=== PATIENT | male | born 1935 | race Asian ===

== ENCOUNTER 2018-02-03 17:57 | Inpatient (IN) | payer OTHER ==
--- NOTE | 2018-02-03 18:32 | PDOC ---
Rapid Medical Evaluation Chief Complaint: Blood Transfusion Time Seen by Provider: 02/03/18 18:31 Medical Evaluation: Allergies Allergy/AdvReac Type Severity Reaction Status Date / Time No Known Drug Allergies Allergy Verified 02/03/18 18:10 Vital Signs Temp Pulse Resp BP Pulse Ox 98.7 F 107 H 19 99/46 96 02/03/18 18:10 02/03/18 18:10 02/03/18 18:10 02/03/18 18:10 02/03/18 18:10 02/03/18 18:31 I have performed a brief in-person evaluation of this patient. The patient presents with a chief complaint of blood transfusion. Sent from PCP for low h& H. Reports weakness Pertinent physical exam finding are nad unlabored breathing I have ordered the following: labs ordered The patient will proceed to the ED for further evaluation. Discharge Disposition - Referrals Referrals: Eddie Alvarado MD [Primary Care Provider] - - Patient Instructions - Post Discharge Activity
[2018-02-03 19:00] LABS: BASO % 0.4 % (0-2.0); EOS % 2.9 % (0-4.5); HEMATOCRIT 23.2 % (35.4-49); LYMPH % 14.9 % (8-40); MCHC 34.6 g/dl (32.0-35.9); MEAN CELL VOLUME 92.5 fl (80-96); MEAN PLT VOLUME 8.2 fl (7.5-11.1); MONO % 10.8 % (3.8-10.2); PLATELET COUNT 197 K/MM3 (134-434); RDW 14.3 % (11.9-15.9); WHITE BLOOD COUNT 7.6 K/mm3 (4.0-10.0)
[2018-02-03 19:17] LABS: INR 1.09 (0.82-1.09); PROTHROMBIN TIME (PATIENT) 12.3 SEC (9.98-11.88)
[2018-02-03 19:19] LABS: ACTIVATED PTT 29.7 SECONDS (26.9-34.4)
[2018-02-03 19:21] LABS: ALBUMIN 3.1 g/dl (3.4-5.0); ALK PHOS 65 U/L (45-117); ANION GAP 5 (8-16); BILIRUBIN,TOTAL 0.2 mg/dL (0.2-1.0); BLOOD UREA NITROGEN 36 mg/dL (7-18); CALCIUM 8.4 mg/dL (8.5-10.1); CHLORIDE 103 mmol/L (98-107); CO2 29 mmol/L (21-32); CREATININE 1.5 mg/dL (0.7-1.3); GLUCOSE,RANDOM 141 mg/dL (74-106); POTASSIUM 4.1 mmol/L (3.5-5.1); SGOT/AST 16 U/L (15-37); SGPT/ALT 16 U/L (12-78); SODIUM 137 mmol/L (136-145); TOT PROT 6.6 g/dl (6.4-8.2)
--- NOTE | 2018-02-03 19:41 | PDOC ---
*Physical Exam - Vital Signs Last Vital Signs Temp Pulse Resp BP Pulse Ox 98.7 F 107 H 19 99/46 96 02/03/18 18:10 02/03/18 18:10 02/03/18 18:10 02/03/18 18:10 02/03/18 18:10 ED Treatment Course - LABORATORY CBC & Chemistry Diagram: 02/03/18 18:40 02/03/18 18:40 - ADDITIONAL ORDERS Additional order review: Laboratory Results 02/03/18 02/03/18 18:40 18:40 PT with INR 12.30 H INR 1.09 PTT (Actin FS) 29.7 Sodium 137 Potassium 4.1 Chloride 103 Carbon Dioxide 29 D Anion Gap 5 L BUN 36 H D Creatinine 1.5 H Creat Clearance w eGFR 44.69 Random Glucose 141 H D Calcium 8.4 L Total Bilirubin 0.2 D AST 16 ALT 16 Alkaline Phosphatase 65 D Total Protein 6.6 Albumin 3.1 L 02/03/18 18:40 RBC 2.50 L MCV 92.5 MCHC 34.6 RDW 14.3 MPV 8.2 Neutrophils % 71.0 Lymphocytes % 14.9 D Monocytes % 10.8 H D Eosinophils % 2.9 Basophils % 0.4 *DC/Admit/Observation/Transfer Diagnosis at time of Disposition: Anemia - Discharge Dispostion Condition at time of disposition: Stable Admit: Yes - Referrals Referrals: Eddie Alvarado MD [Primary Care Provider] - - Patient Instructions - Post Discharge Activity
--- NOTE | 2018-02-03 19:42 | PDOC ---
History of Present Illness - General History Source: Patient Exam Limitations: No Limitations - History of Present Illness Initial Comments: 02/03/18 20:06 The patient is an 82 year old male with a significant PMH of TURP (01/31/18), diabetes, HTN, hyperlipidemia, GERD who presents to the emergency department after being sent by Dr. Eddie Alvarado for evaluation of blood transfusion. The patient reports he has been transfused before. The patient denies weakness or numbness. He denies chest pain or shortness of breath. The patient denies any other complaints. Allergies: NKDA Past surgical history: Cardiac catheter placement. Cardiac stents x3. Appendectomy. Social history: Former smoker. No reported alcohol or drug use. PCP: Dr. Eddie Alvarado <Catalino Abdullahi - Last Filed: 02/03/18 22:30> - General History Source: Patient <Mao Bennett - Last Filed: 02/04/18 19:22> - General Chief Complaint: Blood Transfusion Stated Complaint: Blood Transfusion/ SENT BY PCP Time Seen by Provider: 02/03/18 18:31 Past History <Catalino Abdullahi - Last Filed: 02/03/18 22:30> - Past Medical History Anemia: No Asthma: No Cancer: No Cardiac Disorders: Yes (CARDIAC STENT TIMES THREE) CVA: No COPD: No CHF: No Dementia: No Diabetes: Yes GI Disorders: Yes (REFLUX, ULCER) Disorders: Yes (ENLARGED PROSTATE) HTN: Yes Hypercholesterolemia: Yes Liver Disease: No Seizures: No Thyroid Disease: No - Surgical History Abdominal Surgery: No Appendectomy: Yes Cardiac Surgery: (CARD CATH WITH STENT TIMES THREE) Cholecystectomy: No Lung Surgery: No Neurologic Surgery: No Orthopedic Surgery: No - Suicide/Smoking/Psychosocial Hx Smoking History: Never smoked Have you smoked in the past 12 months: No If you are a former smoker, when did you quit?: 1997 Hx Alcohol Use: No Drug/Substance Use Hx: No Substance Use Type: None Hx Substance Use Treatment: No <Mao Bennett - Last Filed: 02/04/18 19:22> - Past Medical History Allergies/Adverse Reactions: Allergies Allergy/AdvReac Type Severity Reaction Status Date / Time No Known Drug Allergies Allergy Verified 02/03/18 18:10 Home Medications: Ambulatory Orders Aspirin 81 mg PO DAILY 02/04/18 Clopidogrel Bisulfate [Plavix -] 75 mg PO DAILY 02/04/18 Ezetimibe-Simvastatin 10-20 mg 10 - 20 mg PO DAILY 02/04/18 Linagliptin [Tradjenta] 5 mg PO DAILY 02/04/18 Losartan Potassium 25 mg PO DAILY 02/04/18 Metoprolol Succinate 25 mg PO DAILY 02/04/18 Tamsulosin HCl [Flomax -] 0.4 mg PO DAILY 02/04/18 Review of Systems - Review of Systems Able to Perform ROS?: Yes Comments:: 02/03/18 20:06 CONSTITUTIONAL: Absent: fever, chills, diaphoresis, generalized weakness, malaise, loss of appetite HEENT: Absent: rhinorrhea, nasal congestion, throat pain, throat swelling, difficulty swallowing, mouth swelling, ear pain, eye pain, visual Changes CARDIOVASCULAR: Absent: chest pain, syncope, palpitations, irregular heart rate, lightheadedness , peripheral edema RESPIRATORY: Absent: cough, shortness of breath, dyspnea with exertion, orthopnea, wheezing, stridor, hemoptysis GASTROINTESTINAL: Absent: abdominal pain, abdominal distension, nausea, vomiting, diarrhea, constipation, melena, hematochezia GENITOURINARY: Absent: dysuria, frequency, urgency, hesitancy, hematuria, flank pain, genital pain MUSCULOSKELETAL: Absent: myalgia, arthralgia, joint swelling SKIN: Absent: rash, itching, pallor HEMATOLOGIC/IMMUNOLOGIC: Absent: easy bleeding, easy bruising, lymphadenopathy, frequent infections ENDOCRINE: Absent: unexplained weight gain, unexplained weight loss, heat intolerance, cold intolerance NEUROLOGIC: Absent: headache, focal weakness or paresthesias, dizziness, unsteady gait, seizure, mental status changes, bladder or bowel incontinence PSYCHIATRIC: Absent: anxiety, depression, suicidal or homicidal ideation, hallucinations. <Catalino Abdullahi - Last Filed: 02/03/18 22:30> *Physical Exam - Vital Signs Last Vital Signs Temp Pulse Resp BP Pulse Ox 98.7 F 107 H 19 99/46 96 02/03/18 18:10 02/03/18 18:10 02/03/18 18:10 02/03/18 18:10 02/03/18 18:10 - Physical Exam Comments: 02/03/18 20:06 GENERAL: Well developed, well nourished. Awake and alert. No acute distress. HEENT: Normocephalic, atraumatic. PERRLA, EOMI. No conjunctival pallor. Sclera are non- icteric. Moist mucous membranes. Oropharynx is clear. NECK: Supple. Full ROM. No JVD. Carotid pulses 2+ and symmetric, without bruits. No thyromegaly. No lymphadenopathy. CARDIOVASCULAR: (+) Slightly tachycardic. Regular rhythm. No murmurs, rubs, or gallops. Distal pulses are 2+ and symmetric. PULMONARY: No evidence of respiratory distress. Lungs clear to auscultation bilaterally. No wheezing, rales or rhonchi. ABDOMINAL: Soft. Non-tender. Non-distended. No rebound or guarding. No organomegaly. Normoactive bowel sounds. MUSCULOSKELETAL Normal range of motion at all joints. No bony deformities or tenderness. No CVA tenderness. EXTREMITIES: No cyanosis. No clubbing. No edema. No calf tenderness. SKIN: Warm and dry. Normal capillary refill. No rashes. No jaundice. NEUROLOGICAL: Alert, awake, appropriate. Cranial nerves 2-12 intact. No deficits to light touch and temperature in face, upper extremities and lower extremities. No motor deficits in the in face, upper extremities and lower extremities. Normoreflexic in the upper and lower extremities. Normal speech. Toes are downgoing bilaterally. PSYCHIATRIC: Cooperative. Good eye contact. Appropriate mood and affect. <Catalino Abdullahi - Last Filed: 02/03/18 22:30> - Vital Signs Last Vital Signs Temp Pulse Resp BP Pulse Ox 98.7 F 107 H 19 99/46 96 02/03/18 18:10 02/03/18 18:10 02/03/18 18:10 02/03/18 18:10 02/03/18 18:10 <Mao Bennett - Last Filed: 02/04/18 19:22> Heart Score/ECG Review #1 02/03/18 20:46 Vent rate 98 bpm Sinus rhythm with occasional consecutive premature ventricular complexes Left anterior fascicular block Abnormal ECG <Catalino Abdullahi - Last Filed: 02/03/18 22:30> ED Treatment Course - LABORATORY CBC & Chemistry Diagram: 02/03/18 18:40 02/03/18 18:40 - ADDITIONAL ORDERS Additional order review: Laboratory Results 02/03/18 02/03/18 02/03/18 18:40 18:40 18:40 PT with INR 12.30 H INR 1.09 PTT (Actin FS) 29.7 Sodium 137 Potassium 4.1 Chloride 103 Carbon Dioxide 29 D Anion Gap 5 L BUN 36 H D Creatinine 1.5 H Creat Clearance w eGFR 44.69 Random Glucose 141 H D Calcium 8.4 L Total Bilirubin 0.2 D AST 16 ALT 16 Alkaline Phosphatase 65 D Total Protein 6.6 Albumin 3.1 L Blood Type O POSITIVE Antibody Screen Negative 02/03/18 18:40 RBC 2.50 L MCV 92.5 MCHC 34.6 RDW 14.3 MPV 8.2 Neutrophils % 71.0 Lymphocytes % 14.9 D Monocytes % 10.8 H D Eosinophils % 2.9 Basophils % 0.4 <Catalino Abdullahi - Last Filed: 02/03/18 22:30> - LABORATORY CBC & Chemistry Diagram: 02/04/18 06:00 02/04/18 06:00 - ADDITIONAL ORDERS Additional order review: Laboratory Results 02/03/18 02/03/18 18:40 18:40 PT with INR 12.30 H INR 1.09 PTT (Actin FS) 29.7 Sodium 137 Potassium 4.1 Chloride 103 Carbon Dioxide 29 D Anion Gap 5 L BUN 36 H D Creatinine 1.5 H Creat Clearance w eGFR 44.69 Random Glucose 141 H D Calcium 8.4 L Total Bilirubin 0.2 D AST 16 ALT 16 Alkaline Phosphatase 65 D Total Protein 6.6 Albumin 3.1 L 02/03/18 18:40 RBC 2.50 L MCV 92.5 MCHC 34.6 RDW 14.3 MPV 8.2 Neutrophils % 71.0 Lymphocytes % 14.9 D Monocytes % 10.8 H D Eosinophils % 2.9 Basophils % 0.4 <Mao Bennett - Last Filed: 02/04/18 19:22> Medical Decision Making - Medical Decision Making 02/03/18 22:[address] Spangler at 19:45 <Catalino Abdullahi - Last Filed: 02/03/18 22:30> - Medical Decision Making 02/04/18 19:21 Dr. Bennett: The scribe's documentation has been prepared under my direction and personally reviewed by me in its entirery. I confirm that the note above accurately reflects all work, treatment, procedures, and medical decision making performed by me. Patient admit for blood transfusion <Mao Bennett - Last Filed: 02/04/18 19:22> *DC/Admit/Observation/Transfer - Attestations Scribe Attestion: 02/03/18 20:07 Documentation prepared by Catalino Abdullahi, acting as medical sonographer for Mao Bennett DO. <Catalino Abdullahi - Last Filed: 02/03/18 22:30> - Discharge Dispostion Decision to Admit order Date/Time: Decision to Admit Order Category Date Time Status Decision to Admit to Hospital Routine Admission 02/03/18 19:41 Ordered <Mao Bennett - Last Filed: 02/04/18 19:22> Diagnosis at time of Disposition: Anemia - Discharge Dispostion Disposition: HOME Condition at time of disposition: Stable
[2018-02-03 21:34] VITALS: TEMP 98
--- NOTE | 2018-02-03 21:47 | HP ---
Admitting History and Physical - Past Medical History Cardiovascular: Yes: CAD (S/P STENTS 2007 PATENT BY CATH 2012), HTN, Hyperlipdemia Gastrointestinal: Yes: GI Bleed, Peptic Ulcer Disease Renal/: Yes: BPH - Past Surgical History Past Surgical History: Yes: Stent - Smoking History Smoking history: Never smoked Have you smoked in the past 12 months: No If you are a former smoker, when did you quit?: 1997 - Alcohol/Substance Use Hx Alcohol Use: No - Social History ADL: Independent History of Recent Travel: No Home Medications - Allergies Allergies/Adverse Reactions: Allergies Allergy/AdvReac Type Severity Reaction Status Date / Time No Known Drug Allergies Allergy Verified 02/03/18 18:10 - Home Medications Home Medications: Ambulatory Orders NK [No Known Home Medication] 02/03/18 Physical Examination Vital Signs: Vital Signs Temperature 98 F 02/03/18 21:33 Pulse Rate 83 02/03/18 21:33 Respiratory Rate 14 02/03/18 21:33 Blood Pressure 140/60 02/03/18 21:33 O2 Sat by Pulse Oximetry (%) 97 02/03/18 21:33 Labs: CBC, BMP 02/03/18 18:40 02/03/18 18:40
[2018-02-04 01:50] VITALS: BMI 24.7
[2018-02-04 07:52] LABS: BASO % 0.7 % (0-2.0); EOS % 3.6 % (0-4.5); HEMATOCRIT 23.5 % (35.4-49); HEMOGLOBIN 8.1 GM/dL (11.7-16.9); LYMPH % 14.4 % (8-40); MCH 31.3 pg (25.7-33.7); MCHC 34.3 g/dl (32.0-35.9); MEAN CELL VOLUME 91.2 fl (80-96); MEAN PLT VOLUME 8.3 fl (7.5-11.1); MONO % 9.8 % (3.8-10.2); NEUT % 71.5 % (42.8-82.8); PLATELET COUNT 179 K/MM3 (134-434); RBC 2.58 M/mm3 (4.00-5.60); RDW 14.5 % (11.9-15.9); WHITE BLOOD COUNT 7.7 K/mm3 (4.0-10.0)
[2018-02-04 08:28] LABS: ALBUMIN 2.8 g/dl (3.4-5.0); ANION GAP 10 (8-16); BILIRUBIN,TOTAL 0.9 mg/dL (0.2-1.0); BLOOD UREA NITROGEN 42 mg/dL (7-18); CALCIUM 8.2 mg/dL (8.5-10.1); CHLORIDE 102 mmol/L (98-107); CO2 28 mmol/L (21-32); CREATININE 1.1 mg/dL (0.7-1.3); GLUCOSE,RANDOM 134 mg/dL (74-106); POTASSIUM 4.1 mmol/L (3.5-5.1); SGOT/AST 17 U/L (15-37); SGPT/ALT 15 U/L (12-78); SODIUM 140 mmol/L (136-145)
[2018-02-04 08:30] LABS: ALK PHOS 48 U/L (45-117); TOT PROT 5.8 g/dl (6.4-8.2)
[2018-02-04] MEDS ORDERED: DOCUSATE SODIUM 100 MG CAPSULE (FP) PO ONE (13:00)
--- NOTE | 2018-02-04 13:18 | EKG ---
Test Reason : Blood Pressure : / mmHG Vent. Rate : 098 BPM Atrial Rate : 098 BPM P-R Int : 198 ms QRS Dur : 078 ms QT Int : 344 ms P-R-T Axes : 092 -47 069 degrees QTc Int : 439 ms SINUS RHYTHM WITH OCCASIONAL and consecutive PREMATURE VENTRICULAR COMPLEXES LEFT ANTERIOR FASCICULAR BLOCK ABNORMAL ECG WHEN COMPARED WITH ECG OF 22-JUL-2016 07:41, PREMATURE VENTRICULAR COMPLEXES ARE NOW PRESENT Confirmed by WILFRED GUTIERREZ, LEANNE ([id number]) on 02/04/2018 1:18:24 PM Referred By: Confirmed By:LEANNE HARDIN MD
[2018-02-04 13:49] VITALS: BP 130/58; PULSE 81
--- NOTE | 2018-02-05 16:21 | EKG ---
Test Reason : Blood Pressure : / mmHG Vent. Rate : 091 BPM Atrial Rate : 091 BPM P-R Int : 208 ms QRS Dur : 080 ms QT Int : 336 ms P-R-T Axes : 075 -27 061 degrees QTc Int : 413 ms NORMAL SINUS RHYTHM NORMAL ECG WHEN COMPARED WITH ECG OF 22-JUL-2016 07:41, NO SIGNIFICANT CHANGE WAS FOUND Confirmed by LONNIE WATSON MD ([id number]) on 02/05/2018 4:21:37 PM Referred By: Confirmed By:LONNIE WATSON MD
== END 2018-02-04 15:00 | disposition home or self-care (01) | DRG 812 ==
LOC: JER 17:57 → JERBED 19:55 → J7W 21:28
PROVIDERS: ADMIT Internal Medicine; ATTEND Internal Medicine
PROC: 30233N1 Transfusion of Nonautologous Red Blood Cells into Peripheral Vein, Percutaneous Approach (ICD-10-PCS; principal; 2018-02-03)
DX: D64.9 Anemia, unspecified (principal); E11.9 Type 2 diabetes mellitus without complications; I10 Essential (primary) hypertension; E78.5 Hyperlipidemia, unspecified; K21.9 Gastro-esophageal reflux disease without esophagitis; Z87.891 Personal history of nicotine dependence; I25.10 Atherosclerotic heart disease of native coronary artery without angina pectoris; K27.9 Peptic ulcer, site unspecified, unspecified as acute or chronic, without hemorrhage or perforation; I44.4 Left anterior fascicular block; N40.0 Benign prostatic hyperplasia without lower urinary tract symptoms
CPT/HCPCS: 36415; 36430; 71045-TC-FY; 80053; 82962; 85025; 85610; 85730; 86922; 93005; 93010; 99285-25

== ENCOUNTER 2018-02-07 15:23 | Inpatient (IN) | payer OTHER ==
[2018-02-07 15:39] VITALS: BMI 24.3
--- NOTE | 2018-02-07 17:00 | PDOC ---
History of Present Illness - General Chief Complaint: Blood Transfusion Stated Complaint: PCP SENT/BLOOD TRANSFUSION Time Seen by Provider: 02/07/18 16:20 History Source: Patient - History of Present Illness Timing/Duration: other Associated Symptoms: reports: weakness. denies: chest pain, cough, fever/chills , nausea/vomiting, shortness of breath Past History - Past Medical History Allergies/Adverse Reactions: Allergies Allergy/AdvReac Type Severity Reaction Status Date / Time No Known Drug Allergies Allergy Verified 02/07/18 15:35 Home Medications: Ambulatory Orders Aspirin 81 mg PO DAILY 02/04/18 Clopidogrel Bisulfate [Plavix -] 75 mg PO DAILY 02/04/18 Metoprolol Succinate 25 mg PO DAILY 02/04/18 Anemia: No Asthma: No Cancer: No Cardiac Disorders: Yes (CARDIAC STENT TIMES THREE) CVA: No COPD: No CHF: No Dementia: No Diabetes: Yes GI Disorders: Yes (REFLUX, ULCER) Disorders: Yes (ENLARGED PROSTATE) HTN: Yes Hypercholesterolemia: Yes Liver Disease: No Seizures: No Thyroid Disease: No - Surgical History Abdominal Surgery: No Appendectomy: Yes Cardiac Surgery: (CARD CATH WITH STENT TIMES THREE) Cholecystectomy: No Lung Surgery: No Neurologic Surgery: No Orthopedic Surgery: No - Suicide/Smoking/Psychosocial Hx Smoking History: Former smoker Have you smoked in the past 12 months: No If you are a former smoker, when did you quit?: 1997 Information on smoking cessation initiated: No Hx Alcohol Use: No Drug/Substance Use Hx: No Substance Use Type: None Hx Substance Use Treatment: No Review of Systems - Review of Systems Constitutional: Yes: Weakness. No: Chills, Fever Respiratory: No: Shortness of Breath Cardiac (ROS): No: Chest Pain ABD/GI: No: Constipated, Diarrhea, Nausea, Vomiting, Abdominal cramping : No: Dysuria *Physical Exam - Vital Signs Last Vital Signs Temp Pulse Resp BP Pulse Ox 98.9 F 88 19 99/51 96 02/07/18 15:35 02/07/18 15:35 02/07/18 15:35 02/07/18 15:35 02/07/18 15:35 - Physical Exam General Appearance: Yes: Appropriately Dressed. No: Apparent Distress HEENT: positive: Normal Voice Neck: positive: Supple Respiratory/Chest: positive: Lungs Clear, Normal Breath Sounds. negative: Respiratory Distress Cardiovascular: positive: Regular Rate, S1, S2 Gastrointestinal/Abdominal: positive: Soft. negative: Tender Rectal Exam: positive: other (dark brown guaiac + stool) Musculoskeletal: negative: CVA Tenderness Integumentary: positive: Dry, Warm Neurologic: positive: Fully Oriented, Alert, Normal Mood/Affect ED Treatment Course - LABORATORY CBC & Chemistry Diagram: 02/07/18 16:54 02/07/18 16:54 - RADIOLOGY Radiology Studies Ordered: Category Date Time Status CHEST X-RAY PORTABLE* [RAD] Stat Radiology 02/07/18 16:21 Ordered Medical Decision Making - Medical Decision Making 02/07/18 16:59 82-year-old male history of TURP 01/31/2018, indwelling catheter, diabetes, hypertension, hyperlipidemia, GERD, peptic ulcer disease, GI bleed, anemia, status post multiple transfusions including transfusion several days ago for hemoglobin of 8, received 1 unit per son, s/p f/u with Dr Alvarado yesterday who repeated blood work and contacted pt today to inform him that his hemoglobin came back at 6. Patient continues to feel weak. Denies dizziness or shortness of breath. As per son since TURP last month, patient has had dark stool. Currently on iron pills. Patient denies any abdominal pain, diarrhea, constipation, nausea, vomiting, fever or chills See exam Possible melena w/ symptomatic anemia H/o PUD, gastritis, s/p multiple transfusion +weakness now w/ hgb 6 on labs yesterday per son Hypotensive in ED w/ benign abd and guaiac + dark stool -IVF -PPI -labs -transfuse -admit 02/07/18 18:00 HGB 7.1 today. Will transfers transfuse 2 units of packed red blood cells per discussion with Dr. Nugent. Patient admitted to Dr. Spangler as per discussion with [facility] Consult to patient's GI, Dr. Alford, placed in [facility] 02/07/18 18:04 *DC/Admit/Observation/Transfer Diagnosis at time of Disposition: GIB (gastrointestinal bleeding) Qualifiers: GI bleed type/associated pathology: unspecified gastrointestinal hemorrhage type Qualified Code(s): K92.2 - Gastrointestinal hemorrhage, unspecified Anemia Qualifiers: Anemia type: unspecified type Qualified Code(s): D64.9 - Anemia, unspecified - Discharge Dispostion Condition at time of disposition: Fair Admit: Yes - Referrals Referrals: Eddie Alvarado MD [Primary Care Provider] - - Patient Instructions - Post Discharge Activity
[2018-02-07 17:06] LABS: BASO % 0.9 % (0-2.0); EOS % 3.2 % (0-4.5); HEMATOCRIT 20.9 % (35.4-49); HEMOGLOBIN 7.1 GM/dL (11.7-16.9); LYMPH % 19.4 % (8-40); MCH 31.7 pg (25.7-33.7); MCHC 33.8 g/dl (32.0-35.9); MEAN CELL VOLUME 93.9 fl (80-96); MEAN PLT VOLUME 7.7 fl (7.5-11.1); MONO % 13.1 % (3.8-10.2); NEUT % 63.4 % (42.8-82.8); PLATELET COUNT 213 K/MM3 (134-434); RBC 2.23 M/mm3 (4.00-5.60); RDW 15.3 % (11.9-15.9); WHITE BLOOD COUNT 5.8 K/mm3 (4.0-10.0)
[2018-02-07 17:17] LABS: INR 1.12 (0.82-1.09); PROTHROMBIN TIME (PATIENT) 12.7 SEC (9.98-11.88)
[2018-02-07 17:18] LABS: URINE APPEARANCE SLCLOUDY; URINE BILIRUBIN NEGATIVE (<2.0 mg/dL); URINE COLOR YELLOW; URINE GLUCOSE (UA) NEGATIVE (NEGATIVE); URINE KETONE NEGATIVE (NEGATIVE); URINE NITRITE NEGATIVE (NEGATIVE); URINE UROBILINOGEN NEGATIVE mg/dL (0.2-1.0)
[2018-02-07 17:28] LABS: URINE LEUK ESTERASE 3+ (NEGATIVE); URINE PROTEIN 1+ (NEGATIVE)
[2018-02-07 17:29] LABS: URINE MUCUS RARE
[2018-02-07 17:34] LABS: ALBUMIN 3.1 g/dl (3.4-5.0); ANION GAP 7 (8-16); BLOOD UREA NITROGEN 39 mg/dL (7-18); CALCIUM 7.9 mg/dL (8.5-10.1); CHLORIDE 106 mmol/L (98-107); CO2 28 mmol/L (21-32); CREATININE 1.4 mg/dL (0.7-1.3); GLUCOSE,RANDOM 126 mg/dL (74-106); POTASSIUM 4.5 mmol/L (3.5-5.1); SGOT/AST 18 U/L (15-37); SGPT/ALT 23 U/L (12-78); SODIUM 141 mmol/L (136-145)
[2018-02-07 17:37] LABS: ALK PHOS 62 U/L (45-117); BILIRUBIN,TOTAL 0.3 mg/dL (0.2-1.0); TOT PROT 6.4 g/dl (6.4-8.2)
[2018-02-07] MEDS ORDERED: SODIUM CHLORIDE 500 ML IV STA (17:43)
[2018-02-07] MEDS ORDERED: PANTOPRAZOLE SODIUM 40 MG VIAL IVPUSH ONE (17:46)
[2018-02-07] MEDS ORDERED: PANTOPRAZOLE SODIUM 40 MG VIAL ONE (17:51)
[2018-02-07] MEDS: PANTOPRAZOLE SODIUM 80 MG in SODIUM CHLORIDE 100 ML IVPB SCH (18:15)
[2018-02-07] MEDS ORDERED: PT OWN MED DRAWER 7, Y5N ONE (23:50)
[2018-02-08] MEDS ORDERED: DEXTROSE 5%-0.45% SALINE 1,000 ML IV SCH (02:00)
[2018-02-08] MEDS: PANTOPRAZOLE SODIUM 80 MG in SODIUM CHLORIDE 100 ML IVPB SCH (06:26)
[2018-02-08 07:20] LABS: EOS % 6.5 % (0-4.5); HEMATOCRIT 23.2 % (35.4-49); LYMPH % 19.8 % (8-40); MCH 31.4 pg (25.7-33.7); MCHC 34.2 g/dl (32.0-35.9); MEAN CELL VOLUME 91.7 fl (80-96); MEAN PLT VOLUME 7.7 fl (7.5-11.1); MONO % 11.4 % (3.8-10.2); NEUT % 61.3 % (42.8-82.8); PLATELET COUNT 187 K/MM3 (134-434); RBC 2.53 M/mm3 (4.00-5.60); RDW 15.4 % (11.9-15.9)
[2018-02-08 07:54] LABS: ALBUMIN 2.7 g/dl (3.4-5.0); ALK PHOS 45 U/L (45-117); ANION GAP 9 (8-16); BILIRUBIN,TOTAL 0.8 mg/dL (0.2-1.0); BLOOD UREA NITROGEN 25 mg/dL (7-18); CALCIUM 7.9 mg/dL (8.5-10.1); CHLORIDE 108 mmol/L (98-107); CO2 27 mmol/L (21-32); CREATININE 1.3 mg/dL (0.7-1.3); GLUCOSE,RANDOM 118 mg/dL (74-106); POTASSIUM 3.9 mmol/L (3.5-5.1); SGOT/AST 14 U/L (15-37); SGPT/ALT 14 U/L (12-78); SODIUM 144 mmol/L (136-145); TOT PROT 5.6 g/dl (6.4-8.2)
--- NOTE | 2018-02-08 09:01 | EKG ---
Test Reason : Blood Pressure : / mmHG Vent. Rate : 074 BPM Atrial Rate : 074 BPM P-R Int : 198 ms QRS Dur : 080 ms QT Int : 390 ms P-R-T Axes : 090 -38 053 degrees QTc Int : 432 ms NORMAL SINUS RHYTHM LEFT AXIS DEVIATION ABNORMAL ECG WHEN COMPARED WITH ECG OF 03-FEB-2018 20:32, PREMATURE VENTRICULAR COMPLEXES ARE NO LONGER PRESENT Confirmed by WILFRED GUTIERREZ, LEANNE ([id number]) on 02/08/2018 9:01:09 AM Referred By: Confirmed By:LEANNE HARDIN MD
[2018-02-08] MEDS: PANTOPRAZOLE 40 MG TABLET (FP) PO SCH (10:23)
[2018-02-08] MEDS: metoPROLOL SUCCINATE 25 MG TAB.SR.24H (FP) PO SCH (10:23)
--- NOTE | 2018-02-08 10:34 | CON.GU ---
Consult Consult Specialty:: Urology Reason for Consultation:: Urinary retention and hematuria - History of Present Illness Chief Complaint: Unable to urinate after TURP. Has been having hematuria also. - Past Medical History Cardio/Vascular: Yes: CAD (S/P STENTS 2007 PATENT BY CATH 2012), HTN, Hyperlipdemia Gastrointestinal: Yes: GI Bleed, Peptic Ulcer Disease Renal/: Yes: BPH - Past Surgical History Past Surgical History: Yes: Stent - Alcohol/Substance Use Hx Alcohol Use: No - Smoking History Smoking history: Former smoker Have you smoked in the past 12 months: No If you are a former smoker, when did you quit?: 1997 - Social History Usual Living Arrangement: With Spouse ADL: Independent History of Recent Travel: No Home Medications - Allergies Allergies/Adverse Reactions: Allergies Allergy/AdvReac Type Severity Reaction Status Date / Time No Known Drug Allergies Allergy Verified 02/07/18 15:35 - Home Medications Home Medications: Ambulatory Orders Aspirin 81 mg PO DAILY 02/04/18 Clopidogrel Bisulfate [Plavix -] 75 mg PO DAILY 02/04/18 Metoprolol Succinate 25 mg PO DAILY 02/04/18 Physical Exam- Vital Signs: Vital Signs Temperature 98.9 F 02/08/18 07:42 Pulse Rate 67 02/08/18 07:42 Respiratory Rate 18 02/08/18 07:42 Blood Pressure 123/50 02/08/18 07:42 O2 Sat by Pulse Oximetry (%) 98 02/08/18 00:28 Labs: CBC, BMP 02/08/18 07:05 02/08/18 07:05 Assessment/Plan BPH. Post TURP. Urinary retention and hematuria. Bleeding has stopped at present. Pt. is getting blood transfusion, received 2 units. Urologically pt. can be discharged and we will follow in the office. Thank you
--- NOTE | 2018-02-08 11:59 | CON.GI ---
Consult Consult Specialty:: GI Referred by:: Dr Spangler - History of Present Illness History of Present Illness: 82 y/o male with PMH of duodenal ulcers was admitted because of symptomatic anemia. He under went TURP 2 weeks ago. He denies abdominal pain, nausea and vomiting. He has microscopic hematuria. - Past Medical History Cardio/Vascular: Yes: CAD (S/P STENTS 2007 PATENT BY CATH 2012), HTN, Hyperlipdemia Gastrointestinal: Yes: GI Bleed, Peptic Ulcer Disease Renal/: Yes: BPH - Past Surgical History Past Surgical History: Yes: Stent - Alcohol/Substance Use Hx Alcohol Use: No - Smoking History Smoking history: Former smoker Have you smoked in the past 12 months: No If you are a former smoker, when did you quit?: 1997 - Social History Usual Living Arrangement: With Spouse ADL: Independent History of Recent Travel: No Home Medications - Allergies Allergies/Adverse Reactions: Allergies Allergy/AdvReac Type Severity Reaction Status Date / Time No Known Drug Allergies Allergy Verified 02/07/18 15:35 - Home Medications Home Medications: Ambulatory Orders Aspirin 81 mg PO DAILY 02/04/18 Clopidogrel Bisulfate [Plavix -] 75 mg PO DAILY 02/04/18 Metoprolol Succinate 25 mg PO DAILY 02/04/18 Physical Exam-GI Vital Signs: Vital Signs Temperature 98.9 F 02/08/18 07:42 Pulse Rate 67 02/08/18 07:42 Respiratory Rate 18 02/08/18 07:42 Blood Pressure 123/50 02/08/18 07:42 O2 Sat by Pulse Oximetry (%) 98 02/08/18 00:28 Constitutional: Yes: Well Nourished Eyes: Yes: Conjunctiva Clear HENT: Yes: Atraumatic Neck: Yes: Supple Cardiovascular: Yes: Regular Rate and Rhythm Respiratory: Yes: CTA Bilaterally ...Palpate: Yes: Soft. No: Firm/Rigid, Guarding, Hepatomegaly, Mass, Pulsatile Mass, Splenomegaly, Tenderness, Tenderness, Epigastium Labs: CBC, BMP 02/08/18 07:05 02/08/18 07:05 INR, PTT INR 1.12 (0.82-1.09) 02/07/18 16:54 Problem List - Problems (1) Anemia Assessment/Plan: most likely after TURP R> stool guaiac od x3 made aware to follow please recall as necessary Protonix 40mg daily Code(s): D64.9 - ANEMIA, UNSPECIFIED Qualifiers: Anemia type: unspecified type Qualified Code(s): D64.9 - Anemia, unspecified
--- NOTE | 2018-02-08 12:02 | HP ---
Admitting History and Physical - Admission History of Present Illness: Pt is a 82 y/o male w/ PMH significant for HTN, HLD, CAD(s//p cardiac stetns), duodenal ulcer, anemia and BPH(had TURP about 2 weeks ago). Pt has been having intermittent dark stools for a few weeks but states that he has a h/o anemia requiring blood transfusions in the past. Pt was recently trasnfused 1 unit of PBRC's and returns now bc of increased weakness and in the ER was found to have a hgb of 7.1 and ordered for 1 unit of PRBC's. Pt denies any chest pain/ palpitations/abdominal pain/nausea/vomiting. - Past Medical History Cardiovascular: Yes: CAD (S/P STENTS 2007 PATENT BY CATH 2012), HTN, Hyperlipdemia Gastrointestinal: Yes: GI Bleed, Peptic Ulcer Disease Renal/: Yes: BPH - Past Surgical History Past Surgical History: Yes: Stent - Smoking History Smoking history: Former smoker Have you smoked in the past 12 months: No If you are a former smoker, when did you quit?: 1997 - Alcohol/Substance Use Hx Alcohol Use: No - Social History ADL: Independent History of Recent Travel: No Home Medications - Allergies Allergies/Adverse Reactions: Allergies Allergy/AdvReac Type Severity Reaction Status Date / Time No Known Drug Allergies Allergy Verified 02/07/18 15:35 - Home Medications Home Medications: Ambulatory Orders Aspirin 81 mg PO DAILY 02/04/18 Clopidogrel Bisulfate [Plavix -] 75 mg PO DAILY 02/04/18 Metoprolol Succinate 25 mg PO DAILY 02/04/18 Family Disease History - Family Disease History Family History: Unremarkable Review of Systems - Review of Systems Constitutional: reports: Weakness HENT: reports: No Symptoms Neck: reports: No Symptoms Cardiovascular: reports: No Symptoms Respiratory: reports: No Symptoms Gastrointestinal: reports: Other (Dark stools) Musculoskeletal: reports: No Symptoms Physical Examination Vital Signs: Vital Signs Temperature 98.6 F 02/08/18 10:00 Pulse Rate 72 02/08/18 10:00 Respiratory Rate 18 02/08/18 10:00 Blood Pressure 130/56 02/08/18 10:00 O2 Sat by Pulse Oximetry (%) 98 02/08/18 09:00 Constitutional: Yes: Well Nourished HENT: Yes: WNL Neck: Yes: WNL, Supple Cardiovascular: Yes: WNL, Regular Rate and Rhythm Respiratory: Yes: WNL, Regular, CTA Bilaterally Gastrointestinal: Yes: WNL, Normal Bowel Sounds, Soft Musculoskeletal: Yes: WNL Extremities: Yes: WNL Edema: No Neurological: Yes: WNL, Alert, Oriented ...Motor Strength: WNL Labs: CBC, BMP 02/08/18 07:05 02/08/18 07:05 Problem List - Problems (1) GIB (gastrointestinal bleeding) Assessment/Plan: Monitor H?H Transfuse as need Stool hemoccult GI/heme consults Protonix Advance diet Code(s): K92.2 - GASTROINTESTINAL HEMORRHAGE, UNSPECIFIED Qualifiers: GI bleed type/associated pathology: unspecified gastrointestinal hemorrhage type Qualified Code(s): K92.2 - Gastrointestinal hemorrhage, unspecified (2) Anemia Assessment/Plan: Anemia w/u in progress ?Multifactorial Code(s): D64.9 - ANEMIA, UNSPECIFIED Qualifiers: Anemia type: unspecified type Qualified Code(s): D64.9 - Anemia, unspecified (3) Duodenal ulcer Code(s): K26.9 - DUODENAL ULCER, UNSP ACUTE OR CHRONIC, W/O HEMOR OR PERF (4) HLD (hyperlipidemia) Code(s): E78.5 - HYPERLIPIDEMIA, UNSPECIFIED (5) HTN (hypertension) Assessment/Plan: BP stable Pt not on any antihypertensives Will get cardio consult Code(s): I10 - ESSENTIAL (PRIMARY) HYPERTENSION (6) BPH (benign prostatic hyperplasia) Assessment/Plan: As per uro Code(s): N40.0 - BENIGN PROSTATIC HYPERPLASIA WITHOUT LOWER URINRY TRACT SYMP (7) CAD (coronary artery disease) Code(s): I25.10 - ATHSCL HEART DISEASE OF [place] CORONARY ARTERY W/O ANG PCTRS
--- NOTE | 2018-02-08 14:19 | CONSULT ---
Consult Consult Specialty:: Hematology Referred by:: Medicine Reason for Consultation:: Anemia - History of Present Illness Chief Complaint: Patient with recent TURP, with post-procedure hematuria, admitted for significant anemia. History of Present Illness: Reports being anemic since childhood, but unaware of any diagnosis. Hematuria as noted, but present for only a few days, and not danyelle. Of note, reports recent 'stick dark' stools, and noted to have occult blood assay positive. Otherwise feeling well. - History Source History Provided By: Patient Limitations to Obtaining History: No Limitations - Past Medical History Cardio/Vascular: Yes: CAD (S/P STENTS 2007 PATENT BY CATH 2012), HTN, Hyperlipdemia Gastrointestinal: Yes: GI Bleed, Peptic Ulcer Disease Renal/: Yes: BPH - Past Surgical History Past Surgical History: Yes: Stent - Alcohol/Substance Use Hx Alcohol Use: No - Smoking History Smoking history: Former smoker Have you smoked in the past 12 months: No If you are a former smoker, when did you quit?: 1997 - Social History Usual Living Arrangement: With Spouse ADL: Independent History of Recent Travel: No Home Medications - Allergies Allergies/Adverse Reactions: Allergies Allergy/AdvReac Type Severity Reaction Status Date / Time No Known Drug Allergies Allergy Verified 02/07/18 15:35 - Home Medications Home Medications: Ambulatory Orders Aspirin 81 mg PO DAILY 02/04/18 Clopidogrel Bisulfate [Plavix -] 75 mg PO DAILY 02/04/18 Metoprolol Succinate 25 mg PO DAILY 02/04/18 Review of Systems - Review of Systems Constitutional: reports: Malaise (Since surgery) Eyes: reports: No Symptoms HENT: reports: No Symptoms Neck: reports: No Symptoms Cardiovascular: denies: Chest Pain, Shortness of Breath Respiratory: denies: Cough, Hemoptysis, SOB Gastrointestinal: reports: Melena. denies: Abdominal Pain, Diarrhea, Vomiting Genitourinary: reports: Other (As per main complaint) Musculoskeletal: reports: No Symptoms Integumentary: reports: No Symptoms Neurological: denies: Dizziness, Headache, Weakness Endocrine: reports: No Symptoms Hematology/Lymphatic: denies: Easily Bruised, Excessive Bleeding Psychiatric: reports: No Symptoms Physical Exam Vital Signs: Vital Signs Temperature 98.6 F 02/08/18 10:00 Pulse Rate 72 02/08/18 10:00 Respiratory Rate 18 02/08/18 10:00 Blood Pressure 130/56 02/08/18 10:00 O2 Sat by Pulse Oximetry (%) 98 02/08/18 09:00 Constitutional: Yes: Well Nourished Eyes: Yes: Conjunctiva Clear, Other (arcus senilis) HENT: Yes: WNL Neck: Yes: WNL Cardiovascular: Yes: Regular Rate and Rhythm, S1, S2. No: Gallop, Murmur Respiratory: Yes: Regular, CTA Bilaterally Gastrointestinal: Yes: Normal Bowel Sounds, Soft. No: Hepatomegaly, Splenomegaly, Tenderness, Tenderness, Epigastrium Musculoskeletal: Yes: WNL Extremities: Yes: WNL Neurological: Yes: Alert, Oriented ...Motor Strength: WNL Psychiatric: Yes: Alert Labs: CBC, BMP 02/08/18 07:05 02/08/18 07:05 Assessment/Plan Normocytic anemia, following TURP procedure, with hematuria (likely not sufficient to explain degree of anemia), but suggestion of melena stools. GI consulted, PPI initated. Of interest, noted to have Hb of 7.7 in 2016. No other CBCs available for review between then and now. Normocytosis suggests acuity, or alternatively competing etiologies for anemia. Comprehensive hematinic screen ordered. Screen for hemolysis, but with low index of suspicion. Reticulocyte pending - if appropriately elevated then would be more confident in attributing current anemia solely to GI bleed Transfusion RBCs.
[2018-02-09 06:57] LABS: BASO % 0.7 % (0-2.0); HEMATOCRIT 27.5 % (35.4-49); HEMOGLOBIN 9.4 GM/dL (11.7-16.9); MCHC 34.2 g/dl (32.0-35.9); MEAN CELL VOLUME 90.5 fl (80-96); MEAN PLT VOLUME 7.6 fl (7.5-11.1); NEUT % 59.3 % (42.8-82.8); PLATELET COUNT 215 K/MM3 (134-434); RBC 3.04 M/mm3 (4.00-5.60); RDW 15.4 % (11.9-15.9); WHITE BLOOD COUNT 6.4 K/mm3 (4.0-10.0)
[2018-02-09 07:26] LABS: ALBUMIN 2.8 g/dl (3.4-5.0); ANION GAP 8 (8-16); BLOOD UREA NITROGEN 18 mg/dL (7-18); CALCIUM 8.2 mg/dL (8.5-10.1); CHLORIDE 108 mmol/L (98-107); CO2 27 mmol/L (21-32); GLUCOSE,RANDOM 103 mg/dL (74-106); POTASSIUM 3.9 mmol/L (3.5-5.1); SODIUM 143 mmol/L (136-145)
[2018-02-09 07:28] LABS: ALK PHOS 50 U/L (45-117); BILIRUBIN,TOTAL 0.8 mg/dL (0.2-1.0); CREATININE 1.3 mg/dL (0.7-1.3); SGOT/AST 19 U/L (15-37); SGPT/ALT 13 U/L (12-78)
--- NOTE | 2018-02-09 08:18 | CON.CARD ---
Cardiology Consult (text) - Consultation Consultation Note: Cardiology Consult Dictated IMP: Marked anemia Guaiac + stool Hx PUD Recent TURP CAD s/p PCI LAD/RCA 2007 REC: Further reccs as per GI and OK to hold ASA temporarily until source of bleeding is identified and stabilizes.
--- NOTE | 2018-02-09 08:48 | CONS ---
DATE OF CONSULTATION: 02/09/2018 REQUESTED BY: Nancy Spangler MD REASON FOR CONSULTATION: History of coronary disease, GI bleed and assistance with management of antiplatelet drugs. The patient is an 82-year-old male with a pertinent past medical history of coronary artery disease, status post PCI of the RCA and LAD in 2007, GI bleed in 2016 secondary to a gastric ulcer maintained on Plavix therapy alone, recent TURP 2 weeks ago, now presents admitted by his primary medical doctor for marked anemia of 7.1. He also has generalized fatigue over the last several weeks. He was found to be guaiac positive on admission. He denies chest pain. He does have exertional fatigue but denies palpitations, syncope, PND, orthopnea, or other symptoms of heart failure. PAST MEDICAL HISTORY: As above and also includes hypertension. ALLERGIES: He has no known drug allergies. HOME MEDICATIONS: Include Toprol 25 mg daily, Plavix 75 mg daily, and aspirin 81 mg daily. FAMILY HISTORY: Noncontributory. SOCIAL HISTORY: He is a former smoker. PHYSICAL EXAMINATION: Vital Signs: Temperature 97.7, blood pressure 136/55, O2 saturation 98 on room air. Neck: No bruits. Heart: S1, S2 regular. No murmurs. Chest: Clear. Abdomen: Soft, nontender. Extremities: No edema. Chest x-ray: Prominent mediastinum but no acute pathology. EKG: Normal sinus rhythm at 74 beats per minute with leftward axis. No acute ST changes. LABORATORY DATA: White count 6.4, hemoglobin now 9.4, up from 7.1 from admission. Platelet count 215. He has received 3 units of blood since admission. INR 1.12, sodium 143, potassium 3.9, creatinine 1.3. LFTs are normal. Urinalysis had 2+ blood, 3+ leukocyte esterase, guaiac positive x1. IMPRESSION: 1. Marked anemia. 2. Guaiac-positive stool. 3. History of peptic ulcer disease. 4. Recent transurethral resection of prostate. 5. Coronary artery disease with history of percutaneous coronary intervention to the left anterior descending and right coronary artery in 2007. RECOMMENDATIONS: 1. Further recommendations as per GI and to localize the source of bleeding and advise regarding further management. 2. Okay to hold aspirin/Plavix temporarily until source of bleeding is identified and stabilized. At that point in time, he is almost 10 years since his PCI. He can be maintained on single antiplatelet therapy with Plavix alone moving forward. Thank you for the consultation. APURVA HILL M.D. [id number]
[2018-02-09] MEDS: PANTOPRAZOLE 40 MG TABLET (FP) PO SCH (09:34)
[2018-02-09] MEDS: metoPROLOL SUCCINATE 25 MG TAB.SR.24H (FP) PO SCH (09:35)
[2018-02-10 06:08] LABS: SERUM IRON SATURATION 22 % (15-55); TOTAL IRON BINDING CAPACITY 297 ug/dL (250-450); UIBC 233 ug/dL (111-343)
[2018-02-10] MEDS ORDERED: POLYETHYLENE GLYCOL 3350 255 GM BTL PO ONE (09:17)
--- NOTE | 2018-02-10 09:22 | PN ---
GI Progress Note Subjective: saw patient last evening, informed him about stool guaiac results and the presence of occult gi bleeding - Objective Vital Signs: Vital Signs Temperature 98.2 F 02/10/18 06:00 Pulse Rate 69 02/10/18 06:00 Respiratory Rate 18 02/10/18 06:00 Blood Pressure 126/67 02/10/18 06:00 O2 Sat by Pulse Oximetry (%) 98 02/09/18 21:00 Constitutional: Well Nourished Eyes: Yes: Conjunctiva Clear HENT: Yes: Atraumatic Cardiovascular: Yes: Regular Rate and Rhythm Respiratory: Yes: CTA Bilaterally ...Palpate: Yes: Soft. No: Guarding, Hepatomegaly, Mass, Pulsatile Mass, Tenderness Labs: CBC, BMP 02/09/18 06:45 02/09/18 06:45 INR, PTT INR 1.12 (0.82-1.09) 02/07/18 16:54 Problem List - Problems (1) Anemia Assessment/Plan: R> for EGD and colonoscopy Code(s): D64.9 - ANEMIA, UNSPECIFIED Qualifiers: Anemia type: unspecified type Qualified Code(s): D64.9 - Anemia, unspecified
--- NOTE | 2018-02-10 09:35 | PN ---
Progress Note, Physician Chief Complaint: seen and examined Ambulating, no distress Guaiac + x 2 - Current Medication List Current Medications: Active Medications Magnesium Citrate (Citroma -) 300 ml PO ONCE ONE Stop: 02/11/18 04:01 Metoprolol Succinate (Toprol Xl -) 25 mg PO DAILY [facility] Last Admin: 02/09/18 09:35 Dose: Not Given Pantoprazole Sodium (Protonix -) 40 mg PO DAILY [facility] Last Admin: 02/09/18 09:34 Dose: Not Given Sodium Phosphate (Fleet Adult Rectal Enema -) 133 ml [place] ONCE ONE Stop: 02/11/18 12:01 - Objective Vital Signs: Vital Signs Temperature 98.2 F 02/10/18 06:00 Pulse Rate 69 02/10/18 06:00 Respiratory Rate 18 02/10/18 06:00 Blood Pressure 126/67 02/10/18 06:00 O2 Sat by Pulse Oximetry (%) 98 02/09/18 21:00 Constitutional: Yes: Calm Eyes: Yes: Conjunctiva Clear, EOM Intact Cardiovascular: Yes: Regular Rate and Rhythm Respiratory: Yes: CTA Bilaterally Gastrointestinal: Yes: Soft Edema: No Neurological: Yes: Alert, Oriented ...Motor Strength: WNL Labs: CBC, BMP 02/09/18 06:45 02/09/18 06:45 INR, PTT INR 1.12 (0.82-1.09) 02/07/18 16:54 Assessment/Plan IMP: Marked anemia Guaiac + stool Hx PUD Recent TURP CAD s/p PCI LAD/RCA 2007 REC: No cardiac contraindications to EGD/Colonoscopy. When feasible, resume single antiplatelet Rx with Plavix. D/C ASA.
[2018-02-10] MEDS ORDERED: PT OWN MED DRAWER 7, Y5N ONE (10:45)
[2018-02-10] MEDS: PANTOPRAZOLE 40 MG TABLET (FP) PO SCH (10:47)
[2018-02-10] MEDS: metoPROLOL SUCCINATE 25 MG TAB.SR.24H (FP) PO SCH (10:47)
--- NOTE | 2018-02-10 11:38 | PN ---
Progress Note (short form) - Note Progress Note: Pt seen and examined chart reviewed denies any complains Last Vital Signs Constitutional: Yes: Well Nourished Eyes: Yes: Conjunctiva Clear, Other (arcus senilis) HENT: Yes: WNL Neck: Yes: WNL Cardiovascular: Yes: Regular Rate and Rhythm, S1, S2. No: Gallop, Murmur Respiratory: Yes: Regular, CTA Bilaterally Gastrointestinal: Yes: Normal Bowel Sounds, Soft. No: Hepatomegaly, Splenomegaly, Tenderness, Tenderness, Epigastrium Musculoskeletal: Yes: WNL Extremities: Yes: WNL Neurological: Yes: Alert, Oriented Temp Pulse Resp BP Pulse Ox 98.2 F 69 18 126/67 98 02/10/18 06:00 02/10/18 06:00 02/10/18 06:00 02/10/18 06:00 02/09/18 21:00 CBC, BMP 02/09/18 06:45 02/09/18 06:45 Current Medications Generic Name Dose Route Start Last Admin Trade Name Freq PRN Reason Stop Dose Admin Magnesium Citrate 300 ml 02/11/18 04:00 Citroma - PO 02/11/18 04:01 ONCE ONE Metoprolol Succinate 25 mg 02/08/18 10:00 02/10/18 10:47 Toprol Xl - PO 25 mg DAILY NICHO Administration Pantoprazole Sodium 40 mg 02/08/18 10:00 02/10/18 10:47 Protonix - PO 40 mg DAILY NICHO Administration Sodium Phosphate 133 ml 02/11/18 12:00 Fleet Adult Rectal Enema - [place] 02/11/18 12:01 ONCE ONE Anemia: FOBT + x 2. for GI w/u Hgb stable for now anti-platelets per Cardiology
[2018-02-10 13:24] LABS: BASO % 0.5 % (0-2.0); EOS % 3.2 % (0-4.5); HEMATOCRIT 31.2 % (35.4-49); HEMOGLOBIN 10.2 GM/dL (11.7-16.9); LYMPH % 11.3 % (8-40); MCH 29.9 pg (25.7-33.7); MCHC 32.8 g/dl (32.0-35.9); MEAN CELL VOLUME 91.1 fl (80-96); MEAN PLT VOLUME 7.6 fl (7.5-11.1); MONO % 7.8 % (3.8-10.2); NEUT % 77.2 % (42.8-82.8); PLATELET COUNT 212 K/MM3 (134-434); RBC 3.43 M/mm3 (4.00-5.60); RDW 15.3 % (11.9-15.9); WHITE BLOOD COUNT 7.4 K/mm3 (4.0-10.0)
--- NOTE | 2018-02-10 22:32 | PN ---
Progress Note, Physician History of Present Illness: No new complaints - Current Medication List Current Medications: Active Medications Magnesium Citrate (Citroma -) 300 ml PO ONCE ONE Stop: 02/11/18 04:01 Metoprolol Succinate (Toprol Xl -) 25 mg PO DAILY [facility] Last Admin: 02/10/18 10:47 Dose: 25 mg Pantoprazole Sodium (Protonix -) 40 mg PO DAILY [facility] Last Admin: 02/10/18 10:47 Dose: 40 mg Sodium Phosphate (Fleet Adult Rectal Enema -) 133 ml [place] ONCE ONE Stop: 02/11/18 12:01 - Objective Vital Signs: Vital Signs Temperature 97.8 F 02/10/18 18:00 Pulse Rate 68 02/10/18 18:00 Respiratory Rate 20 02/10/18 18:00 Blood Pressure 144/68 02/10/18 18:00 O2 Sat by Pulse Oximetry (%) 98 02/10/18 09:00 Eyes: Yes: WNL HENT: Yes: WNL Neck: Yes: WNL, Supple Cardiovascular: Yes: WNL, Regular Rate and Rhythm Respiratory: Yes: WNL, Regular, CTA Bilaterally Gastrointestinal: Yes: WNL, Normal Bowel Sounds, Soft Labs: CBC, BMP 02/10/18 12:38 02/09/18 06:45 INR, PTT INR 1.12 (0.82-1.09) 02/07/18 16:54 Problem List - Problems (1) GIB (gastrointestinal bleeding) Assessment/Plan: Monitor H/H wc has remained stable Pt for colonoscopy in am Transfuse as need Cont protonix ASA was dc'ed As per cardio plavix to be restarted once more stable Code(s): K92.2 - GASTROINTESTINAL HEMORRHAGE, UNSPECIFIED Qualifiers: GI bleed type/associated pathology: unspecified gastrointestinal hemorrhage type Qualified Code(s): K92.2 - Gastrointestinal hemorrhage, unspecified (2) Anemia Assessment/Plan: Anemia w/u in progress ?Multifactorial Code(s): D64.9 - ANEMIA, UNSPECIFIED Qualifiers: Anemia type: unspecified type Qualified Code(s): D64.9 - Anemia, unspecified (3) Duodenal ulcer Assessment/Plan: Cont protonix Code(s): K26.9 - DUODENAL ULCER, UNSP ACUTE OR CHRONIC, W/O HEMOR OR PERF (4) HLD (hyperlipidemia) Code(s): E78.5 - HYPERLIPIDEMIA, UNSPECIFIED (5) HTN (hypertension) Assessment/Plan: BP stable Cont metoprolol Code(s): I10 - ESSENTIAL (PRIMARY) HYPERTENSION (6) BPH (benign prostatic hyperplasia) Assessment/Plan: Will dc suggs in am S/P TURP 2 weeks ago Code(s): N40.0 - BENIGN PROSTATIC HYPERPLASIA WITHOUT LOWER URINRY TRACT SYMP (7) CAD (coronary artery disease) Code(s): I25.10 - ATHSCL HEART DISEASE OF [place] CORONARY ARTERY W/O ANG PCTRS
[2018-02-10] MEDS: DEXTROSE 5%-0.45% SALINE 1,000 ML IV SCH (23:00)
[2018-02-11 00:09] LABS: FREE KAPPA,SERUM 40.1 mg/L (3.3-19.4)
[2018-02-11] MEDS ORDERED: MAGNESIUM CITRATE 300 ML BOTTLE PO ONE (04:00)
[2018-02-11 07:44] LABS: EOS % 8.7 % (0-4.5); HEMOGLOBIN 10.2 GM/dL (11.7-16.9); MCH 31.1 pg (25.7-33.7); MEAN CELL VOLUME 91.6 fl (80-96); MEAN PLT VOLUME 7.8 fl (7.5-11.1); MONO % 10.9 % (3.8-10.2); NEUT % 61.4 % (42.8-82.8); PLATELET COUNT 199 K/MM3 (134-434); RBC 3.28 M/mm3 (4.00-5.60); RDW 15.2 % (11.9-15.9); WHITE BLOOD COUNT 5.7 K/mm3 (4.0-10.0)
[2018-02-11 07:48] LABS: ALBUMIN 2.9 g/dl (3.4-5.0); ANION GAP 7 (8-16); BLOOD UREA NITROGEN 11 mg/dL (7-18); CALCIUM 8.1 mg/dL (8.5-10.1); CHLORIDE 108 mmol/L (98-107); CO2 25 mmol/L (21-32); CREATININE 1.3 mg/dL (0.7-1.3); GLUCOSE,RANDOM 127 mg/dL (74-106); POTASSIUM 3.9 mmol/L (3.5-5.1); SGOT/AST 14 U/L (15-37); SGPT/ALT 14 U/L (12-78); SODIUM 140 mmol/L (136-145)
[2018-02-11 07:50] LABS: ALK PHOS 51 U/L (45-117); BILIRUBIN,TOTAL 0.6 mg/dL (0.2-1.0); TOT PROT 6.2 g/dl (6.4-8.2)
[2018-02-11] MEDS ORDERED: TAMSULOSIN HCL 0.4 MG CAP.ER.24H (FP) PO SCH (08:30)
--- NOTE | 2018-02-11 08:56 | PN ---
Progress Note, Physician Chief Complaint: comfortable - Current Medication List Current Medications: Active Medications Dextrose/Sodium Chloride (D5-1/2ns -) 1,000 mls @ 75 mls/hr IV ASDIR [facility] Last Admin: 02/10/18 23:00 Dose: 75 mls/hr Metoprolol Succinate (Toprol Xl -) 25 mg PO DAILY [facility] Last Admin: 02/10/18 10:47 Dose: 25 mg Pantoprazole Sodium (Protonix -) 40 mg PO DAILY [facility] Last Admin: 02/10/18 10:47 Dose: 40 mg Sodium Phosphate (Fleet Adult Rectal Enema -) 133 ml MD ONCE ONE Stop: 02/11/18 12:01 Tamsulosin HCl (Flomax -) 0.4 mg PO DAILY@0830 [facility] - Objective Vital Signs: Vital Signs Temperature 98.0 F 02/11/18 06:00 Pulse Rate 66 02/11/18 06:00 Respiratory Rate 18 02/11/18 06:00 Blood Pressure 122/61 02/11/18 06:00 O2 Sat by Pulse Oximetry (%) 99 02/10/18 21:00 Constitutional: Yes: Calm Eyes: Yes: Conjunctiva Clear Cardiovascular: Yes: Regular Rate and Rhythm Respiratory: Yes: CTA Bilaterally Gastrointestinal: Yes: Soft Edema: No Neurological: Yes: Alert, Oriented Labs: CBC, BMP 02/11/18 07:05 02/11/18 07:05 INR, PTT INR 1.12 (0.82-1.09) 02/07/18 16:54 Laboratory Tests 02/07/18 02/09/18 02/09/18 16:54 06:45 09:30 WBC 6.4 Hgb 9.4 L D Plt Count 215 Sodium Potassium Creatinine Stool Occult Blood Positive Positive 02/11/18 02/11/18 07:05 07:05 WBC 5.7 Hgb 10.2 L Plt Count 199 Sodium 140 Potassium 3.9 Creatinine 1.3 Stool Occult Blood Assessment/Plan IMP: Marked anemia Guaiac + stool Hx PUD Recent TURP CAD s/p PCI LAD/RCA 2007 REC: No cardiac contraindications to EGD/Colonoscopy. When feasible, resume single antiplatelet Rx with Plavix. D/C ASA.
[2018-02-11] MEDS ORDERED: PANTOPRAZOLE SODIUM 40 MG VIAL IVPUSH SCH (10:00)
[2018-02-11] MEDS: metoPROLOL SUCCINATE 25 MG TAB.SR.24H (FP) PO SCH (10:16)
--- NOTE | 2018-02-11 10:58 | PN ---
Progress Note (short form) - Note Progress Note: Medical coverage for Dr. Spangler Subjective: The patient was seen and examined at the bedside, he has no complaints at this time. Denies any GI bleeding at this time NPO for colonoscopy and endoscopy today Current Medications Generic Name Dose Route Start Last Admin Trade Name Chris PRN Reason Stop Dose Admin Dextrose/Sodium Chloride 1,000 mls @ 75 mls/hr 02/10/18 22:45 02/10/18 23:00 D5-1/2ns - IV 75 mls/hr ASDIR NICHO Administration Metoprolol Succinate 25 mg 02/08/18 10:00 02/11/18 10:16 Toprol Xl - PO 25 mg DAILY NICHO Administration Pantoprazole Sodium 40 mg 02/11/18 10:00 02/11/18 10:16 Protonix Iv IVPUSH 40 mg DAILY NICHO Administration Sodium Phosphate 133 ml 02/11/18 12:00 Fleet Adult Rectal Enema - [place] 02/11/18 12:01 ONCE ONE Tamsulosin HCl 0.4 mg 02/11/18 08:30 02/11/18 10:16 Flomax - PO 0.4 mg DAILY@0830 NICHO Administration Objective: Vital Signs Period Temp Pulse Resp BP Sys/Thomas Pulse Ox Last 24 Hr 97.8 F-98.2 F 61-98 18-20 116-144/61-76 99 Physical Exam: General: NAD, A&Ox3 Lungs: CTA bilaterally Heart: RRR, S1S2 Abd: Soft, non-tender, non-distended. Normoactive bowel sounds Ext: Warm, well-perfused. 2+ DP/PT bilaterally CBCD WBC 5.7 K/mm3 (4.0-10.0) 02/11/18 07:05 RBC 3.28 M/mm3 (4.00-5.60) L 02/11/18 07:05 Hgb 10.2 GM/dL (11.7-16.9) L 02/11/18 07:05 Hct 30.0 % (35.4-49) L 02/11/18 07:05 MCV 91.6 fl (80-96) 02/11/18 07:05 MCHC 34.0 g/dl (32.0-35.9) 02/11/18 07:05 RDW 15.2 % (11.9-15.9) 02/11/18 07:05 Plt Count 199 K/MM3 (134-434) 02/11/18 07:05 MPV 7.8 fl (7.5-11.1) 02/11/18 07:05 CMP Sodium 140 mmol/L (136-145) 02/11/18 07:05 Potassium 3.9 mmol/L (3.5-5.1) 02/11/18 07:05 Chloride 108 mmol/L (98-107) H 02/11/18 07:05 Carbon Dioxide 25 mmol/L (21-32) 02/11/18 07:05 Anion Gap 7 (8-16) L 02/11/18 07:05 BUN 11 mg/dL (7-18) D 02/11/18 07:05 Creatinine 1.3 mg/dL (0.7-1.3) 02/11/18 07:05 Creat Clearance w eGFR 52.72 (>60) 02/11/18 07:05 Random Glucose 127 mg/dL (74-106) H D 02/11/18 07:05 Calcium 8.1 mg/dL (8.5-10.1) L 02/11/18 07:05 Total Bilirubin 0.6 mg/dL (0.2-1.0) D 02/11/18 07:05 AST 14 U/L (15-37) L D 02/11/18 07:05 ALT 14 U/L (12-78) 02/11/18 07:05 Alkaline Phosphatase 51 U/L (45-117) 02/11/18 07:05 Total Protein 6.2 g/dl (6.4-8.2) L 02/11/18 07:05 Albumin 2.9 g/dl (3.4-5.0) L 02/11/18 07:05 Microbiology 02/07/18 18:14 Urine - Urine Clean Catch Urine Culture - Final NO GROWTH OBTAINED Assessment: This is an 82 year old male with PMHx HTN, GERD, peptic ulcer disease, anemia, TURP (01/31/18), who presented to the ED with low Hgb Plan: 1) Anemia - S/p 2u PRBC - Stool for occult blood positive - H/H stable - For endoscopy/colonoscopy today - Continue protonix - ASA on hold - Appreciate GI consult - Appreciate hematology consult 2) CAD s/p PCI 2007 - ASA discontinued - Restart Plavix when cleared by GI - Appreciate cardiology consult 3) HTN - Continue Toprol 4) F/E/N: - IV fluids - NPO for procedure 5) Prophylaxis: - Hold all chemical DVT prophylaxis 2/2 GI bleed 6) Dispo: - Requires continued inpatient care CODE STATUS: FULL CODE Visit type - Emergency Visit Emergency Visit: Yes ED Registration Date: 02/07/18 Care time: The patient presented to the Emergency Department on the above date and was hospitalized for further evaluation of their emergent condition. - New Patient This patient is new to me today: Yes Date on this admission: 02/11/18 - Critical Care Critical Care patient: No
[2018-02-11] MEDS ORDERED: SODIUM PHOSPHATE/NA BIPHOS 133 ML ENEMA PR ONE (12:00)
[2018-02-11] MEDS ORDERED: LIDOCAINE HCL/PF 2% SDV 5ML VIAL ONE (17:14)
[2018-02-11] MEDS ORDERED: ETOMIDATE 20 MG/10 ML AMPUL IVPUSH ONE (17:36)
[2018-02-11] MEDS: DEXTROSE 5%-0.45% SALINE 1,000 ML IV SCH (18:52)
[2018-02-12] MEDS ORDERED: DEXTROSE 5%-0.45% SALINE 1,000 ML IV SCH (01:25)
[2018-02-12] MEDS: DEXTROSE 5%-0.45% SALINE 1,000 ML IV SCH (08:00)
[2018-02-12] MEDS ORDERED: TAMSULOSIN HCL 0.4 MG CAP.ER.24H (FP) PO SCH (08:30)
--- NOTE | 2018-02-12 08:54 | PN ---
Progress Note, Physician Chief Complaint: Duodenal bulb ulcers on EGD, Diverticuli on colonoscopy History of Present Illness: Alert in no distress - Current Medication List Current Medications: Active Medications Dextrose/Sodium Chloride (D5-1/2ns -) 1,000 mls @ 75 mls/hr IV ASDIR [facility] Last Admin: 02/12/18 07:59 Dose: 75 mls/hr Metoprolol Succinate (Toprol Xl -) 25 mg PO DAILY [facility] Pantoprazole Sodium (Protonix -) 20 mg PO BID [facility] Polyethylene Glycol (Miralax (For Daily Use) -) 17 gm PO ONCE ONE Stop: 02/12/18 09:01 Tamsulosin HCl (Flomax -) 0.4 mg PO DAILY@0830 [facility] Last Admin: 02/12/18 07:59 Dose: 0.4 mg - Objective Vital Signs: Vital Signs Temperature 98.9 F 02/12/18 06:00 Pulse Rate 70 02/12/18 06:00 Respiratory Rate 20 02/12/18 06:00 Blood Pressure 110/48 02/12/18 06:00 O2 Sat by Pulse Oximetry (%) 99 02/11/18 21:00 Constitutional: Yes: No Distress, Calm Eyes: Yes: Conjunctiva Clear Cardiovascular: Yes: Regular Rate and Rhythm Respiratory: Yes: CTA Bilaterally Gastrointestinal: Yes: Soft Edema: No Neurological: Yes: Alert, Oriented ...Motor Strength: WNL Labs: CBC, BMP 02/11/18 07:05 02/11/18 07:05 INR, PTT INR 1.12 (0.82-1.09) 02/07/18 16:54 Assessment/Plan IMP: Marked anemia UGI bleed secondary to duodenal bulb ulcers Hx PUD CAD s/p PCI LAD/RCA 2007 REC: Resume single antiplatelet therapy with Plavix when safe from GI standpoint. No longer needs ASA. D/C Planning.
[2018-02-12] MEDS ORDERED: POLYETHYLENE GLYCOL 3350 119 GM BTL PO ONE (09:00)
[2018-02-12 09:47] VITALS: TEMP 98.2
[2018-02-12] MEDS ORDERED: PANTOPRAZOLE SODIUM 40 MG VIAL IVPUSH SCH (10:00)
[2018-02-12] MEDS ORDERED: PANTOPRAZOLE 20 MG TABLET (FP) PO SCH (10:00)
[2018-02-12] MEDS ORDERED: metoPROLOL SUCCINATE 25 MG TAB.SR.24H (FP) PO SCH (10:00)
[2018-02-12] MEDS ORDERED: PT OWN MED DRAWER 7, Y5N ONE (12:34)
[2018-02-12 12:39] VITALS: BP 127/59; PULSE 87
--- NOTE | 2018-02-13 13:02 | PATH ---
Surgical Pathology Report Patient Name: SUE TURNER [facility]. Rec. #: [id number] /Age/Gender: 1935 (Age: 82) / M Account: [id number] Location: [address] [place] [address] Taken: 02/11/2018 Received: 02/12/2018 Reported: 02/13/2018 Physicians: Matthias Alford M.D. Specimen(s) Received A: BX DUODENAL BULB ULCER B: BX POSTERIOR DUODENUM C: BX ANTRUM AND BODY Clinical History Anemia, duodenal ulcer, occult blood Final Diagnosis A. DUODENUM, BULB #1 ULCER, BIOPSY: DUODENAL MUCOSA WITH ROGELIO GLAND HYPERPLASIA, HETEROTOPIC GASTRIC MUCOSA, AND MILD NONSPECIFIC ACUTE AND CHRONIC INFLAMMATION. NO HISTOLOGIC EVIDENCE OF GLUTEN SENSITIVE ENTEROPATHY (CELIAC SPRUE) IDENTIFIED. B. DUODENUM, POSTERIOR ULCER #2, BIOPSY: DUODENAL MUCOSA WITH NONSPECIFIC ACUTE AND CHRONIC INFLAMMATION AND REACTIVE CHANGES. NO HISTOLOGIC EVIDENCE OF GLUTEN SENSITIVE ENTEROPATHY (CELIAC SPRUE) IDENTIFIED. C. STOMACH, ANTRUM AND BODY, BIOPSY: GASTRIC MUCOSA WITH NO PATHOLOGIC CHANGES. IMMUNOSTAIN FOR H. PYLORI IS NEGATIVE. Electronically Signed Buddy Greer M.D. Gross Description A. Received in formalin, labeled "duodenal bulb #1 ulcer " are 2 neely, irregular portions of soft tissue measuring 0.2 cm. in greatest dimension. The specimens are submitted in toto in one cassette. B. Received in formalin, labeled "posterior duodenal ulcer #2" is a neely, irregular portion of soft tissue measuring 0.3 cm. in greatest dimension. The specimen is submitted in toto in one cassette. C. Received in formalin, labeled "antrum and body" are 3 neely, irregular portions of soft tissue ranging in size from 0.1-0.4 cm. in greatest dimension. The specimens are submitted in toto in one cassette. MAURIZIO/02/12/2018 diamante/02/12/2018
--- NOTE | 2018-02-15 20:51 | DS ---
Physical Examination Vital Signs: Vital Signs Temperature 98.2 F 02/12/18 09:46 Pulse Rate 87 02/12/18 12:37 Respiratory Rate 20 02/12/18 09:46 Blood Pressure 127/59 02/12/18 12:37 O2 Sat by Pulse Oximetry (%) 99 02/12/18 09:00 Constitutional: Yes: No Distress Cardiovascular: Yes: Regular Rate and Rhythm Respiratory: Yes: Regular, CTA Bilaterally Gastrointestinal: Yes: Normal Bowel Sounds, Soft Labs: CBC, BMP 02/11/18 07:05 02/11/18 07:05 Discharge Summary Reason For Visit: GASTROINTESTINAL HEMORRHAGE Anemia BPH Hospital Course: 82 y/o M with h/o recent TURP, DM, HTN, hyperlipidemia, GERD who was sent to the ED by Dr. Eddie Alvarado for evaluation of blood transfusion. The patient reports he has been transfused before and recent low H/H levels. Over the course of stay he was transfused and improved significantly and is to f/u as outpt. Condition: Good - Instructions Diet, Activity, Other Instructions: 2 gram sodium diet Referrals: Eddie Alvarado MD [Primary Care Provider] - Disposition: HOME - Home Medications Comprehensive Discharge Medication List: Ambulatory Orders Metoprolol Succinate 25 mg PO DAILY 02/04/18 Pantoprazole Sodium [Protonix] 40 mg PO DAILY #30 tablet. 02/12/18 Tamsulosin HCl [Flomax -] 0.4 mg PO DAILY@0830 cap.er.24h 02/12/18 Tamsulosin HCl [Flomax -] 0.4 mg PO DAILY@0830 #30 cap.er.24h 02/12/18
== END 2018-02-12 13:30 | disposition home or self-care (01) | DRG 378 ==
LOC: JER 15:23 → JERBED 17:36 → J5S 22:01
PROVIDERS: ADMIT Internal Medicine; ATTEND Internal Medicine
PROC: 30233N1 Transfusion of Nonautologous Red Blood Cells into Peripheral Vein, Percutaneous Approach (ICD-10-PCS; 2018-02-07)
PROC: 0DJD8ZZ Inspection of Lower Intestinal Tract, Via Natural or Artificial Opening Endoscopic (ICD-10-PCS; 2018-02-11)
PROC: 0DB68ZX Excision of Stomach, Via Natural or Artificial Opening Endoscopic, Diagnostic (ICD-10-PCS; principal; 2018-02-11 15:30)
DX: K25.4 Chronic or unspecified gastric ulcer with hemorrhage (principal); Q43.8 Other specified congenital malformations of intestine; N99.89 Other postprocedural complications and disorders of genitourinary system; R31.9 Hematuria, unspecified; R33.8 Other retention of urine; K21.9 Gastro-esophageal reflux disease without esophagitis; D64.9 Anemia, unspecified; I95.9 Hypotension, unspecified; K29.60 Other gastritis without bleeding; I10 Essential (primary) hypertension; I25.10 Atherosclerotic heart disease of native coronary artery without angina pectoris; N40.0 Benign prostatic hyperplasia without lower urinary tract symptoms; E11.9 Type 2 diabetes mellitus without complications; E78.5 Hyperlipidemia, unspecified; Z87.891 Personal history of nicotine dependence; Z98.61 Coronary angioplasty status; Y83.8 Other surgical procedures as the cause of abnormal reaction of the patient, or of later complication, without mention of misadventure at the time of the procedure
CPT/HCPCS: 36415; 36430; 71045-TC-FY; 80053; 81003; 81015; 82272; 82607; 82728; 82746; 82962; 83540; 83550; 83615; 83883; 84155; 84165; 85025; 85044; 85610; 86850; 86900; 86901; 86922; 87086; 93005; 93010; 99285-25; P9038; P9058